=== PATIENT | female | born 1965 | race Caucasian/White ===

== ENCOUNTER 2017-04-14 16:56 | Emergency (ER) | payer MEDICAID ==
[~2017-04-14] VITALS: Ht 170.2 cm; Wt 72.6 kg
[~2017-04-14 16:56] MED LIST: ARIP5TAB4; CARB200T8; CARI350T27; DEXT20TA6; DIAZ5TAB4; LORA0.5T; LORA1TAB82 PO; QUET50TA14; TRAZ-147; VENL37.591; ZOLP10TA6
--- NOTE | 2017-04-14 17:10 | NUR ---
PT AMBULATORY TO ER BED 12. C/O R ANKLE PAIN S/P SLIP AND FALL LAST SATURDAY. PT STATES SHE WAS AT [place] WHEN SHE SLIPPED ON A PUDDLE OF WATER BY A REFRIGIRATOR. PT FELL ON HER R SIDE. NO HEAD TRAUMA. PT STATES SHE HAD SX WITH PINIS TO SAME ANKLE WHEN SHE WAS YOUNG. STABLE VITALS. AWAITING MD CHRIS.
--- NOTE | 2017-04-14 17:34 | NUR ---
MICHAEL KEEN AT BEDSIDE FOR EVAL.
--- NOTE | 2017-04-14 17:50 | NUR ---
RADIOLOGY AT BEDSIDE FOR R ANKLE XRAY.
[2017-04-14] MEDS ORDERED: TRAMADOL HCL 50 MG TABLET ONE (18:18)
--- NOTE | 2017-04-14 18:24 | NUR ---
PT IS C/O SEVERE R ANKLE PAIN. MICHAEL KEEN MADE AWARE. TRAMADOL 50MG PO GIVEN.
--- NOTE | 2017-04-14 19:22 | NUR ---
Patient discharged to home in stable condition. Written and verbal after care instructions given. Patient verbalizes understanding of instruction.
[2017-04-14 19:24] VITALS: BP 134/72
== END 2017-04-14 19:25 | disposition home or self-care (01) ==
LOC: ER 16:57
DX: S93.402A Sprain of unspecified ligament of left ankle, initial encounter (principal); F41.9 Anxiety disorder, unspecified; F22 Delusional disorders; F17.200 Nicotine dependence, unspecified, uncomplicated; Z90.710 Acquired absence of both cervix and uterus; W18.39XA Other fall on same level, initial encounter; Y93.89 Activity, other specified; Y92.89 Other specified places as the place of occurrence of the external cause; Y99.9 Unspecified external cause status
CPT/HCPCS: 73610; 99284; A4606; Z7610

== ENCOUNTER 2019-08-02 08:12 | Emergency (ER) | payer MEDICAID ==
[~2019-08-02] VITALS: Ht 167.6 cm; Wt 95.7 kg
[~2019-08-02 08:12] MED LIST changes: +ARIP5TAB10; -ARIP5TAB4; +LORA-259 PO; -LORA1TAB82 PO; -QUET50TA14; +QUET50TA15; -TRAZ-147; +TRAZ-214
[2019-08-02] MEDS ORDERED: KETOROLAC TROMETHAMINE INJ 60 MG/2 ML VIAL IM ONE ×2 (08:30→08:47)
[2019-08-02] MEDS ORDERED: DEXAMETHASONE SOD PHOSPHATE 10 MG/ML VIAL IM ONE (08:30)
[2019-08-02] MEDS ORDERED: DEXAMETHASONE SOD PHOSPHATE 10 MG/ML VIAL ONE (08:46)
[2019-08-02 08:55] VITALS: BP 125/69
== END 2019-08-02 08:56 | disposition home or self-care (01) ==
LOC: ER 08:12
DX: K04.7 Periapical abscess without sinus (principal); F41.9 Anxiety disorder, unspecified; F22 Delusional disorders; F17.200 Nicotine dependence, unspecified, uncomplicated; Z90.710 Acquired absence of both cervix and uterus; Z98.890 Other specified postprocedural states
CPT/HCPCS: 96372 ×2; 99283; J1100; J1885

== ENCOUNTER 2019-10-13 06:24 | Emergency (ER) | payer MEDICAID ==
[~2019-10-13] VITALS: Ht 175.3 cm; Wt 89.8 kg
--- NOTE | 2019-10-13 06:43 | NUR ---
BIBS FOR C/O PALPITATION . PT REPORTED SHE WAS SEEN BY HER PCP "DR. DUGAN" AND HE HCANGED HIS BP MED FROM AMLODIPIN TO LOSSARTAN-HCTZ YESTERDAY. SHE HAD A FIRT DOSE OF THE NEW BP MED YESTERDAY AND EVER SINCE SHE HAS NOT BEEN FEELING WELL. PT WAS PLACED ON A MONITOR.
--- NOTE | 2019-10-13 06:48 | NUR ---
AT THE BED SIDE
[2019-10-13] MEDS ORDERED: METOPROLOL TARTRATE 25 MG TABLET ONE (06:57)
[2019-10-13] MEDS ORDERED: METOPROLOL TARTRATE 25 MG TABLET PO ONE (07:00)
[2019-10-13 07:12] LABS: BASOPHILS % (AUTO) 0.7 % (0.0-2.0); EOSINOPHILS % (AUTO) 1.8 % (0.0-6.0); HEMATOCRIT 44 % (33-45); HEMOGLOBIN 14.3 g/dL (11.5-14.8); LYMPHOCYTES # (AUTO) 2.5 /CMM (0.8-4.8); LYMPHOCYTES % (AUTO) 35.3 % (20.0-44.0); MEAN CORPUSCULAR HGB CONC 33 g/dl (31.0-36.0); MEAN CORPUSCULAR VOLUME 86 fL (82-100); MONOCYTES # (AUTO) 0.4 /CMM (0.1-1.30); MONOCYTES % (AUTO) 5.1 % (2.0-12.0); NEUTROPHILS # (AUTO) 4.1 /CMM (1.8-8.9); NEUTROPHILS % (AUTO) 57.1 % (43.0-81.0); PLATELET COUNT (AUTO) 204 /CMM (150-450); RED BLOOD CELL COUNT(AUTO) 5.08 MIL/uL (4.0-5.2); WHITE BLOOD COUNT (AUTO) 7.1 K/uL (4.3-11.0)
--- NOTE | 2019-10-13 07:22 | NUR ---
RECEIVED REPORT FROM TYRON GREY FOR [facility], PT IS AAOX4, NOT IN RESPIRATORY DISTRESS, V/S STABLE, KEPT RESTED AND COMFORTABLE, AWAITING LAB RESULTS, WILL CONTINUE TO MONITOR.
[2019-10-13 07:29] LABS: CALCIUM, SERUM 8.9 mg/dL (8.5-10.1); CARBON DIOXIDE 29 mmol/L (21-32); CHLORIDE 100 mmol/L (98-107); POTASSIUM 4.1 mmol/L (3.5-5.1); SODIUM SERUM 138 mmol/L (136-145); UREA NITROGEN, BLOOD 18 mg/dL (7-18)
[2019-10-13 07:31] LABS: GLUCOSE 400 mg/dL (74-106)
[2019-10-13] MEDS ORDERED: INSULIN REGULAR, HUMAN 100 UNIT/ML 10 ML VIAL SQ ONE (08:00)
[2019-10-13] MEDS ORDERED: INSULIN REGULAR, HUMAN 100 UNIT/ML 10 ML VIAL ONE (08:02)
[2019-10-13 08:59] VITALS: BP 149/95
--- NOTE | 2019-10-13 08:59 | NUR ---
PT REQUEST TO REMOVE HER IV SALINE LOCK.
--- NOTE | 2019-10-13 08:59 | NUR ---
IV removed. Catheter intact and site benign. Pressure and 4x4 applied to site. No bleeding noted.
--- NOTE | 2019-10-13 09:28 | NUR ---
Patient eloped from facility. ER MD notified.
== END 2019-10-13 09:30 | disposition left against medical advice (07) ==
LOC: ER 06:25
DX: R00.2 Palpitations (principal); R73.9 Hyperglycemia, unspecified; F43.9 Reaction to severe stress, unspecified; I10 Essential (primary) hypertension; Z79.899 Other long term (current) drug therapy; F17.200 Nicotine dependence, unspecified, uncomplicated; Z90.710 Acquired absence of both cervix and uterus; Z98.890 Other specified postprocedural states; R07.89 Other chest pain
CPT/HCPCS: 36415; 71045-TC; 80048-TC; 83880; 84484-TC; 85025-TC; J1815

== ENCOUNTER 2021-03-21 12:27 | Emergency (ER) | payer MEDICAID ==
[~2021-03-21] VITALS: Ht 167.6 cm; Wt 92.1 kg
[~2021-03-21 12:27] MED LIST changes: -TRAZ-214; +TRAZ-257
--- NOTE | 2021-03-21 12:34 | NUR ---
Patient came in to the er c/o chest pain since this morning 5/10 pain scale, radiating to left arm. On room air, breathing evenly and unlabored. Connected to the monitor and pulse ox. kept comfortable, will continue to monitor accordingly.
[2021-03-21 12:44] LABS: BASOPHILS # (AUTO) 0.1 /CMM (0.0-0.2); BASOPHILS % (AUTO) 1.1 % (0.0-2.0); HEMATOCRIT 38 % (33-45); HEMOGLOBIN 12.7 g/dL (11.5-14.8); LYMPHOCYTES # (AUTO) 3.3 /CMM (0.8-4.8); LYMPHOCYTES % (AUTO) 34.9 % (20.0-44.0); MEAN CORPUSCULAR HGB CONC 33 g/dl (31.0-36.0); MEAN CORPUSCULAR VOLUME 86 fL (82-100); MONOCYTES # (AUTO) 0.5 /CMM (0.1-1.30); MONOCYTES % (AUTO) 5.5 % (2.0-12.0); NEUTROPHILS # (AUTO) 5.3 /CMM (1.8-8.9); NEUTROPHILS % (AUTO) 56.5 % (43.0-81.0); PLATELET COUNT (AUTO) 267 /CMM (150-450); RED BLOOD CELL COUNT(AUTO) 4.47 MIL/uL (4.0-5.2); WHITE BLOOD COUNT (AUTO) 9.4 K/uL (4.3-11.0)
[2021-03-21 12:54] LABS: CALCIUM, SERUM 9.1 mg/dL (8.5-10.1); CARBON DIOXIDE 27 mmol/L (21-32); CHLORIDE 102 mmol/L (98-107); CREATININE 0.8 mg/dL (0.6-1.3); GLUCOSE 130 mg/dL (74-106); SODIUM SERUM 137 mmol/L (136-145); UREA NITROGEN, BLOOD 20 mg/dL (7-18)
--- NOTE | 2021-03-21 13:28 | NUR ---
PANEL ON-CALL PAGED
[2021-03-21] MEDS ORDERED: ZOLPIDEM TARTRATE 5 MG TABLET PO PRN (14:00)
[2021-03-21] MEDS ORDERED: MAG HYDROX/AL HYDROX/SIMETH 30 ML UDC PO PRN (14:00)
[2021-03-21] MEDS ORDERED: DEXTROSE 50%-WATER 50 ML DISP.SYRIN IV PRN (14:00)
[2021-03-21] MEDS ORDERED: MAGNESIUM HYDROXIDE 30 ML UDC PO PRN (14:00)
[2021-03-21] MEDS ORDERED: INSULIN REGULAR, HUMAN 100 UNIT/ML 3 ML VIAL SQ PRN (14:00)
[2021-03-21] MEDS ORDERED: MORPHINE SULFATE INJ 2 MG/ML DISP.SYRIN IV PRN (14:00)
[2021-03-21] MEDS ORDERED: ACETAMINOPHEN 325 MG TABLET PO PRN (14:00)
[2021-03-21] MEDS ORDERED: ONDANSETRON HCL/PF 4 MG/2 ML VIAL IVP PRN (14:00)
[2021-03-21] MEDS ORDERED: HYDROCODONE/APAP 5/325MG TABLET PO PRN (14:00)
[2021-03-21] MEDS ORDERED: Z GUARD REMEDY 2 OZ OINT TP PRN (14:00)
[2021-03-21] MEDS ORDERED: NITROGLYCERIN 0.4 MG/TAB BOTTLE SL PRN (14:00)
[2021-03-21 16:12] VITALS: BP 135/81
--- NOTE | 2021-03-21 16:14 | NUR ---
Patient does not wish to proceed with medical care recommended by Dr. Watkins. Patient given information related to possible complications, up to and including , which could occur as a result of leaving the hospital at this time. Patient verbalizes understanding of risks involved due to leaving against medical advice. Patient has signed AMA form.
[2021-03-21] MEDS ORDERED: BLOOD SUGAR DIAGNOSTIC 1 EACH STRIP IN SCH (17:30)
[2021-03-22] MEDS ORDERED: ASPIRIN EC 81 MG TABLET.DR PO SCH (09:00)
== END 2021-03-21 16:14 | disposition left against medical advice (07) ==
LOC: ER 12:29
DX: R07.9 Chest pain, unspecified (principal); R00.2 Palpitations; I45.10 Unspecified right bundle-branch block; Z20.822 Contact with and (suspected) exposure to COVID-19; F41.9 Anxiety disorder, unspecified; Z79.899 Other long term (current) drug therapy; Z90.710 Acquired absence of both cervix and uterus
CPT/HCPCS: 36415; 71045; 80048; 84484; 85025; 87081; 87426; 93005; 93307; 99285; C9803

== ENCOUNTER 2024-04-11 02:22 | Emergency (ER) | payer MEDICAID ==
[~2024-04-11] VITALS: Ht 165.1 cm; Wt 90.7 kg
[2024-04-11] MEDS ORDERED: ACETAMINOPHEN ES 500 MG TABLET ONE (03:45)
[2024-04-11] MEDS: ACETAMINOPHEN 325 MG TABLET PO ONE (03:55)
[2024-04-11 04:28] LABS: APPEARANCE,URINE CLEAR (CLEAR); BILIRUBIN,URINE NEGATIVE (NEGATIVE); BLOOD, URINE NEGATIVE Ery/uL (NEGATIVE); COLOR,URINE YELLOW (YELLOW); KETONES,URINE TRACE mg/dL (NEGATIVE); LEUKOCYTE ESTERASE ,URINE NEGATIVE (NEGATIVE); NITRITE, URINE NEGATIVE (NEGATIVE); PROTEIN,URINE TRACE mg/dl (NEGATIVE); UGLUCOSE NEGATIVE (NEGATIVE); UROBILINOGEN,URINE 0.2 EU/dL (0.2)
[2024-04-11 05:01] LABS: RBC,URINE NONE SEEN /HPF (0-2); WBC,URINE NONE SEEN /HPF (0-3)
[2024-04-11 05:02] LABS: ADD URINE CULTURE NO; BACTERIA,URINE 1+ /HPF (None Seen); MUCUS,URINE Few /LPF (None Seen); YEAST,URINE Few /HPF (None Seen)
[2024-04-11] MEDS ORDERED: AZIT250T13 PO (05:03)
[2024-04-11 05:10] VITALS: TEMP 99.1
[2024-04-11 05:18] VITALS: BP 128/71; O2SAT 94
== END 2024-04-11 05:19 | disposition home or self-care (01) ==
LOC: ER 02:24
DX: U07.1 COVID-19 (principal); J18.9 Pneumonia, unspecified organism; E11.9 Type 2 diabetes mellitus without complications; F17.200 Nicotine dependence, unspecified, uncomplicated; Z79.899 Other long term (current) drug therapy; Z98.890 Other specified postprocedural states
CPT/HCPCS: 71045-TC; 81001

== ENCOUNTER → 2024-11-29 | Emergency (ER) | payer MEDICAID ==
[~2024-11-29] VITALS: Ht 167.6 cm; Wt 87.1 kg
[~2024-11-29] MED LIST changes: +AZIT250T13 PO; +CEFTRIAXONE 1GM BAG (ER ONLY) 1 GM/50 ML PIGGYBACK IV ONE; +FAMOTIDINE/PF INJ 20 MG/2 ML VIAL IV ONE; +KETOROLAC TROMETHAMINE INJ 30 MG/ML VIAL ONE; +MORPHINE SULFATE INJ 2 MG/ML DISP.SYRIN ONE; +ONDANSETRON HCL/PF 4 MG/2 ML VIAL ONE
[2024-11-29 08:25] VITALS: TEMP 98
[2024-11-29 09:01] LABS: BASOPHILS # (AUTO) 0.1 K/uL (0.0-0.2); BASOPHILS % (AUTO) 0.8 % (0.0-2.0); EOSINOPHILS % (AUTO) 0.1 % (0.0-6.0); HEMATOCRIT 41 % (33-45); HEMOGLOBIN 13.7 g/dL (11.5-14.8); LYMPHOCYTES # (AUTO) 1.2 K/uL (0.8-4.8); LYMPHOCYTES % (AUTO) 12.7 % (20.0-44.0); MEAN CORPUSCULAR HEMOGLOBIN 29 PG (26.0-33.0); MEAN CORPUSCULAR HGB CONC 33 g/dl (31.0-36.0); MEAN CORPUSCULAR VOLUME 86 fL (82-100); MONOCYTES # (AUTO) 0.2 K/uL (0.1-1.30); MONOCYTES % (AUTO) 2.4 % (2.0-12.0); PLATELET COUNT (AUTO) 275 K/uL (150-450); RED BLOOD CELL COUNT(AUTO) 4.79 MIL/uL (4.0-5.2); RED CELL DISTRIBUTION WIDTH 14.6 % (11.5-15.0); WHITE BLOOD COUNT (AUTO) 9.5 K/uL (4.3-11.0)
[2024-11-29] MEDS: IV NS 0.9% 1,000 ML BAG IV ONE (09:02)
[2024-11-29] MEDS: MORPHINE SULFATE INJ 2 MG/ML DISP.SYRIN IV ONE (09:03)
[2024-11-29] MEDS: FAMOTIDINE/PF INJ 20 MG/2 ML VIAL IV ONE (09:03)
[2024-11-29 09:25] LABS: CALCIUM, SERUM 9.4 mg/dL (8.5-10.1); CARBON DIOXIDE 24 mmol/L (21-32); CHLORIDE 105 mmol/L (98-107); GLUCOSE 295 mg/dL (74-106); POTASSIUM 3.7 mmol/L (3.5-5.1); SODIUM SERUM 140 mmol/L (136-145); UREA NITROGEN, BLOOD 14 mg/dL (7-18)
[2024-11-29 09:30] LABS: ALANINE AMINOTRANSFERASE 28 U/L (12-78); ALBUMIN 4.1 g/dL (3.4-5.0); ALKALINE PHOSPHATASE 93 U/L (46-116); ASPARTATE AMINOTRANSFERASE 14 U/L (15-37); BILIRUBIN,DIRECT 0.1 mg/dL (0.0-0.2); BILIRUBIN,TOTAL 0.4 mg/dL (0.2-1.0); LIPASE 44 U/L (16-77); TOTAL PROTEIN, SERUM 8.1 g/dL (6.4-8.2)
[2024-11-29 10:57] LABS: APPEARANCE,URINE CLEAR (CLEAR); BILIRUBIN,URINE NEGATIVE (NEGATIVE); BLOOD, URINE NEGATIVE Ery/uL (NEGATIVE); COLOR,URINE YELLOW (YELLOW); KETONES,URINE TRACE mg/dL (NEGATIVE); LEUKOCYTE ESTERASE ,URINE NEGATIVE (NEGATIVE); NITRITE, URINE NEGATIVE (NEGATIVE); PROTEIN,URINE NEGATIVE (NEGATIVE); UGLUCOSE 2+ mg/dL (NEGATIVE); UROBILINOGEN,URINE 0.2 EU/dL (0.2)
[2024-11-29 11:02] LABS: ADD URINE CULTURE NO; BACTERIA,URINE Rare /HPF (None Seen); RBC,URINE 0-2 /HPF (0-2); SQUAMOUS EPITHELIAL CELL,UR 0-2 /HPF (None Seen); WBC,URINE 0-2 /HPF (0-3)
[2024-11-29] MEDS: KETOROLAC TROMETHAMINE INJ 30 MG/ML VIAL IV ONE (11:58)
[2024-11-29] MEDS: ONDANSETRON HCL/PF 4 MG/2 ML VIAL IVP ONE (12:35)
[2024-11-29] MEDS: AZITHROMYCIN 500 MG in IV D5W 250 ML IV ONE (12:35)
[2024-11-29] MEDS: CEFTRIAXONE 1 G in IV D5W 50 ML IV ONE (12:50)
[2024-11-29 15:09] VITALS: BP 155/85; O2SAT 95
== END | disposition home or self-care (01) ==
LOC: ER 08:17
DX: R53.1 Weakness (principal); R11.10 Vomiting, unspecified; R10.84 Generalized abdominal pain; E11.9 Type 2 diabetes mellitus without complications; E78.5 Hyperlipidemia, unspecified; F17.200 Nicotine dependence, unspecified, uncomplicated; F41.9 Anxiety disorder, unspecified; I10 Essential (primary) hypertension; Z79.899 Other long term (current) drug therapy; Z90.710 Acquired absence of both cervix and uterus
CPT/HCPCS: 99285; 74176; 96365; 96375; 76705; 71045; 96361; 96366; 96368; 93005; 85025; 80048; 87040; 83690; 80076; 81001; 36415; 84484; J1885; J3490; J0696; J2405; J7060; J0456; J2270

== ENCOUNTER 2025-01-26 11:39 | Emergency (ER) | payer MEDICAID ==
[~2025-01-26] VITALS: Ht 165.1 cm; Wt 94.3 kg
[~2025-01-26 11:39] MED LIST changes: -CEFTRIAXONE 1GM BAG (ER ONLY) 1 GM/50 ML PIGGYBACK IV ONE; -FAMOTIDINE/PF INJ 20 MG/2 ML VIAL IV ONE; -KETOROLAC TROMETHAMINE INJ 30 MG/ML VIAL ONE; -MORPHINE SULFATE INJ 2 MG/ML DISP.SYRIN ONE; -ONDANSETRON HCL/PF 4 MG/2 ML VIAL ONE
[2025-01-26] MEDS ORDERED: ONDANSETRON HCL/PF 4 MG/2 ML VIAL ONE (12:31)
[2025-01-26] MEDS ORDERED: MORPHINE SULFATE INJ 4 MG/ML DISP.SYRIN ONE (12:31)
[2025-01-26 12:41] LABS: BASOPHILS # (AUTO) 0.1 K/uL (0.0-0.2); BASOPHILS % (AUTO) 0.7 % (0.0-2.0); EOSINOPHILS # (AUTO) 0.1 K/uL (0.0-0.7); EOSINOPHILS % (AUTO) 1.6 % (0.0-6.0); HEMATOCRIT 41 % (33-45); LYMPHOCYTES # (AUTO) 2.6 K/uL (0.8-4.8); LYMPHOCYTES % (AUTO) 34.8 % (20.0-44.0); MEAN CORPUSCULAR HEMOGLOBIN 29 PG (26.0-33.0); MEAN CORPUSCULAR HGB CONC 34 g/dl (31.0-36.0); MEAN CORPUSCULAR VOLUME 85 fL (82-100); MONOCYTES # (AUTO) 0.4 K/uL (0.1-1.30); MONOCYTES % (AUTO) 5.8 % (2.0-12.0); NEUTROPHILS # (AUTO) 4.3 K/uL (1.8-8.9); NEUTROPHILS % (AUTO) 57.1 % (43.0-81.0); PLATELET COUNT (AUTO) 258 K/uL (150-450); RED BLOOD CELL COUNT(AUTO) 4.84 MIL/uL (4.0-5.2); RED CELL DISTRIBUTION WIDTH 13.6 % (11.5-15.0); WHITE BLOOD COUNT (AUTO) 7.5 K/uL (4.3-11.0)
[2025-01-26] MEDS: IV NS 0.9% 1,000 ML BAG IV ONE (12:45)
[2025-01-26] MEDS: ONDANSETRON HCL/PF 4 MG/2 ML VIAL IVP ONE (12:46)
[2025-01-26] MEDS: MORPHINE SULFATE INJ 2 MG/ML DISP.SYRIN IV ONE (12:50)
[2025-01-26 13:05] LABS: CALCIUM, SERUM 9.3 mg/dL (8.5-10.1); CREATININE 0.9 mg/dL (0.6-1.3); POTASSIUM 3.6 mmol/L (3.5-5.1)
[2025-01-26 13:19] LABS: ALBUMIN 3.6 g/dL (3.4-5.0); BILIRUBIN,DIRECT 0.1 mg/dL (0.0-0.2); BILIRUBIN,TOTAL 0.4 mg/dL (0.2-1.0); TOTAL PROTEIN, SERUM 7.5 g/dL (6.4-8.2)
[2025-01-26 14:53] VITALS: BP 129/74; TEMP 98.3; O2SAT 94
== END 2025-01-26 14:55 | disposition home or self-care (01) ==
LOC: ER 11:43
DX: K80.20 Calculus of gallbladder without cholecystitis without obstruction (principal); R10.31 Right lower quadrant pain; E11.9 Type 2 diabetes mellitus without complications; E86.0 Dehydration; F17.200 Nicotine dependence, unspecified, uncomplicated; F41.9 Anxiety disorder, unspecified; Z79.85 Long-term (current) use of injectable non-insulin antidiabetic drugs; Z79.899 Other long term (current) drug therapy; Z90.710 Acquired absence of both cervix and uterus
CPT/HCPCS: 99285; 74176; 96374; 76705; 96361; 96375; 85025; 80048; 83690; 80076; 36415; J2270; J2405; J7030